=== PATIENT | male | born 1980 | race Two or more races ===

== ENCOUNTER 2022-07-31 18:48 | Emergency (ER) | payer MEDICAID, OTHER ==
[2022-07-31] MEDS: Amoxicillin/Clavulanate K 875-125 MG Tab PO ONE (20:43)
[2022-07-31] MEDS: Acetaminophen/HYDROcodone 325-5 MG Tab PO ONE ×2 (20:43→21:08)
[2022-07-31] MEDS: Bacitracin Oint 1 GM U/D Packet TOP ONE (20:43)
== END 2022-07-31 21:08 | disposition home or self-care (01) ==
LOC: JP.ED 18:48
DX: S61.412A Laceration without foreign body of left hand, initial encounter (principal); I10 Essential (primary) hypertension; I25.2 Old myocardial infarction; F17.210 Nicotine dependence, cigarettes, uncomplicated; Z79.82 Long term (current) use of aspirin; Z79.899 Other long term (current) drug therapy; W26.8XXA Contact with other sharp object(s), not elsewhere classified, initial encounter
CPT/HCPCS: 36415; 73130; 80048; 85025; 86140; 99283; A9270